=== PATIENT | female | born 1940 | race Caucasian/White ===

== ENCOUNTER 2020-10-23 17:56 | Emergency (ER) | payer MEDICARE, BC ==
[2020-10-23 18:25] LABS: PTT,PARTIAL THROMBOPLSTIN TIME 21.4 SEC (23.2-32.3)
[2020-10-23 18:29] LABS: CHLORIDE,CL 104 mEq/L (98-106); SODIUM,NA 141 mEq/L (136-145)
--- NOTE | 2020-10-23 18:34 | EDM.PDOC ---
ED HPI GENERAL MEDICAL PROBLEM - General Chief Complaint: Neuro Symptoms/Deficits Stated Complaint: slurred speech Time Seen by Provider: 10/23/20 18:23 Source of Information: Reports: Patient, Family - History of Present Illness INITIAL COMMENTS - FREE TEXT/NARRATIVE: Kaylyn is a pleasant 79 yo female who presents to the ED with c/o left arm numbness and flaccid hand as well as slurred speech. Reports last known well of 1750. Reports she was attempting to cut a pizza and her hand just went numb and she couldn't lift it. Reports she had to physically lift her left arm with her opposite arm. She reports numbness extended up to elbow area. Also reports her speech was somewhat slurred. She called her [id number] who then brought her here. Upon arrival, symptoms have improved. She has 5/5 strength to LUE. Speech very mildly slurred and very slight left sided facial droop with smiling. NIH 2. She reports prior to onset she was feeling well. Denies any recent illness. Denies any chest pain, dizziness, shortness of breath, N/V/D, urinary symptoms. She does admit to exertional SOB but this has been longstanding. She reports she is scheduled to have transcatheter aortic valve replacement on November 29. Onset: Today, Sudden Onset Date: 10/23/20 Onset Time: 17:50 Duration: Improving Location: Reports: Upper Extremity, Left - Related Data Allergies Allergy/AdvReac Type Severity Reaction Status Date / Time ciprofloxacin [From Cipro] Allergy Hives Verified 10/23/20 18:25 ciprofloxacin HCl Allergy Hives Verified 10/23/20 18:25 [From Cipro] Home Meds: Home Meds Aspirin [Halfprin] 81 mg PO BRK 01/29/15 [History] Calcium Carbonate [Calcium] 1,000 mg PO DAILY 01/29/15 [History] Cholecalciferol (Vitamin D3) [Vitamin D] 4,000 unit PO DAILY 01/29/15 [History] Ferrous Sulfate 324 mg PO WITHBREAKFAST 01/29/15 [History] Levothyroxine [Synthroid] 50 mcg PO ACBREAKFAST 01/29/15 [History] Lisinopril 20 mg PO DAILY 01/29/15 [History] Magnesium 500 mg PO DAILY 01/29/15 [History] glipiZIDE [Glipizide ER] 1 tab PO DAILY 01/29/15 [History] metFORMIN [Glucophage] 500 mg PO DAILY 01/29/15 [History] predniSONE [Prednisone] 5 mg PO Q48H PRN 01/29/15 [History] atorvaSTATin Calcium [Atorvastatin Calcium] 20 mg PO DAILY 03/14/16 [History] Folic Acid 1 mg PO DAILY 03/15/16 [History] Past Medical History Cardiovascular History: Reports: Heart Murmur, High Cholesterol, Hypertension Endocrine/Metabolic History: Reports: Diabetes, Type II Social & Family History - Family History Family Medical History: No Pertinent Family History - Recreational Drug Use Recreational Drug Use: No - Living Situation & Occupation Occupation: Retired ED ROS GENERAL - Review of Systems Review Of Systems: Comprehensive ROS is negative, except as noted in HPI. Constitutional: Denies: Fever, Chills, Malaise, Weakness, Fatigue, Decreased Appetite HEENT: Reports: No Symptoms. Denies: Vertigo, Vision Change Respiratory: Reports: No Symptoms. Denies: Shortness of Breath, Pleuritic Chest Pain, Cough, Sputum Cardiovascular: Reports: No Symptoms. Denies: Chest Pain, Dyspnea on Exertion, Edema, Syncope Endocrine: Reports: No Symptoms GI/Abdominal: Reports: No Symptoms : Reports: Incontinence (baseline ) Musculoskeletal: Reports: No Symptoms Skin: Reports: No Symptoms Neurological: Reports: Numbness (LUE, resolved at this time), Weakness (LUE, resolved at this time), Change in Speech (slurring, improved from intial onset). Denies: Confusion, Dizziness, Headache, Paresthesia, Syncope, Trouble Speaking, Gait Disturbance Psychiatric: Reports: No Symptoms Hematologic/Lymphatic: Reports: No Symptoms Immunologic: Reports: No Symptoms ED EXAM, NEURO - Physical Exam Exam: See Below Exam Limited By: No Limitations General Appearance: Alert, WD/WN, No Apparent Distress Eye Exam: Bilateral Eye: EOMI, Normal Fundi, Normal Inspection, PERRL Throat/Mouth: Normal Inspection, Normal Lips, Normal Teeth, Normal Gums, Normal Oropharynx, Normal Voice, No Airway Compromise Head Exam: Atraumatic, Normocephalic Neck: Normal Inspection, Supple, Non-Tender, Full Range of Motion Respiratory/Chest: No Respiratory Distress, Lungs Clear, Normal Breath Sounds, No Accessory Muscle Use, Chest Non-Tender Cardiovascular: Normal Peripheral Pulses, Regular Rate, Rhythm, No Edema, Systolic Murmur GI/Abdominal: Normal Bowel Sounds, Soft, Non-Tender, No Organomegaly, No Distention, No Abnormal Bruit, No Mass Neurological: Alert, Normal Mood/Affect, Normal Dorsiflexion, CN II-XII Intact, Normal Plantar Flexion, Normal Gait, Normal Reflexes, No Motor/Sensory Deficits, Oriented x 3. No: Abnormal Finger to Nose, Abnormal Sensation, Abnormal Light Touch Back Exam: Normal Inspection, Full Range of Motion, NT Extremities: Normal Inspection, Normal Range of Motion, Non-Tender, No Pedal Edema, Normal Capillary Refill Psychiatric: Normal Affect, Normal Mood Skin Exam: Warm, Dry, Intact, Normal Color, No Rash Course - Orders/Labs/Meds Labs: Laboratory Tests 10/23/20 10/23/20 10/23/20 Range/Units 17:59 18:10 18:10 WBC 6.6 (4.0-11.0) 10^3/uL RBC 3.80 L (4.00-5.50) x10^6/uL Hgb 11.4 L (12.0-16.0) g/dL Hct 35.7 L (37.0-47.0) % MCV 93.9 (83.0-97.0) fL MCH 30.0 (27.0-32.0) pg MCHC 31.9 L (32.0-36.0) g/dL RDW Coeff of Maninder 12.2 (11.0-15.0) % Plt Count 254 (150-400) 10^3/uL Immature Gran % (Auto) 0.2 (0.0-4.9) % Neut % (Auto) 59.3 (41-71) % Lymph % (Auto) 28.2 (24-44) % Bibb % (Auto) 10.0 (0-10) % Eos % (Auto) 2.0 (0-6) % Baso % (Auto) 0.3 (0-1) % Neut # (Auto) 3.94 (1.80-8.00) x10^3/uL Lymph # (Auto) 1.87 (0.60-5.00) 10^3/uL Bibb # (Auto) 0.66 (0.00-1.50) 10^3/uL Eos # (Auto) 0.13 (0.00-1.50) 10^3/uL Baso # (Auto) 0.02 (0.00-0.50) 10^3/uL Immature Gran # (Auto) 0.01 (0.00-0.49) 10^3/uL PT 10.3 (9.7-12.3) SEC INR 0.94 (0.92-1.18) APTT 21.4 L (23.2-32.3) SEC Sodium (136-145) mEq/L Potassium (3.5-5.0) mEq/L Chloride (98-106) mEq/L Carbon Dioxide (21-32) mmol/L BUN (7-18) mg/dL Creatinine (0.6-1.0) mg/dL Est Cr Clr Drug Dosing Estimated GFR (MDRD) (>=60) mL/min Glucose (75-99) mg/dL Calcium (8.4-10.1) mg/dL Creatine Kinase (21-215) U/L Troponin I (0.00-0.06) ng/mL Urine Color Light yellow (YELLOW) Urine Appearance Slightly cloudy (CLEAR) Urine pH 5.5 (4.5-8.0) Ur Specific George 1.020 (1.003-1.020) Urine Protein 30 H (NEGATIVE) mg/dL Urine Glucose (UA) Negative (NEGATIVE) mg/dL Urine Ketones Negative (NEGATIVE) mg/dL Urine Occult Blood Moderate H (NEGATIVE) Urine Nitrite Negative (NEGATIVE) Urine Bilirubin Negative (NEGATIVE) Urine Urobilinogen 0.2 (0.2-1.0) EU/dL Ur Leukocyte Esterase Large H (NEGATIVE) Urine RBC 5-10 H (0-5) /HPF Urine WBC 10-20 H (0-5) /HPF Urine WBC Clumps Moderate H (NOT SEEN) /HPF Ur Epithelial Cells Few H (NOT SEEN) /HPF Urine Bacteria Moderate H (NOT SEEN) /HPF 10/23/20 Range/Units 18:10 WBC (4.0-11.0) 10^3/uL RBC (4.00-5.50) x10^6/uL Hgb (12.0-16.0) g/dL Hct (37.0-47.0) % MCV (83.0-97.0) fL MCH (27.0-32.0) pg MCHC (32.0-36.0) g/dL RDW Coeff of Maninder (11.0-15.0) % Plt Count (150-400) 10^3/uL Immature Gran % (Auto) (0.0-4.9) % Neut % (Auto) (41-71) % Lymph % (Auto) (24-44) % Bibb % (Auto) (0-10) % Eos % (Auto) (0-6) % Baso % (Auto) (0-1) % Neut # (Auto) (1.80-8.00) x10^3/uL Lymph # (Auto) (0.60-5.00) 10^3/uL Bibb # (Auto) (0.00-1.50) 10^3/uL Eos # (Auto) (0.00-1.50) 10^3/uL Baso # (Auto) (0.00-0.50) 10^3/uL Immature Gran # (Auto) (0.00-0.49) 10^3/uL PT (9.7-12.3) SEC INR (0.92-1.18) APTT (23.2-32.3) SEC Sodium 141 (136-145) mEq/L Potassium 5.0 (3.5-5.0) mEq/L Chloride 104 (98-106) mEq/L Carbon Dioxide 24 (21-32) mmol/L BUN 28 H (7-18) mg/dL Creatinine 1.6 H (0.6-1.0) mg/dL Est Cr Clr Drug Dosing TNP Estimated GFR (MDRD) 31 L (>=60) mL/min Glucose 107 H D (75-99) mg/dL Calcium 9.1 (8.4-10.1) mg/dL Creatine Kinase 54 (21-215) U/L Troponin I < 0.017 (0.00-0.06) ng/mL Urine Color (YELLOW) Urine Appearance (CLEAR) Urine pH (4.5-8.0) Ur Specific George (1.003-1.020) Urine Protein (NEGATIVE) mg/dL Urine Glucose (UA) (NEGATIVE) mg/dL Urine Ketones (NEGATIVE) mg/dL Urine Occult Blood (NEGATIVE) Urine Nitrite (NEGATIVE) Urine Bilirubin (NEGATIVE) Urine Urobilinogen (0.2-1.0) EU/dL Ur Leukocyte Esterase (NEGATIVE) Urine RBC (0-5) /HPF Urine WBC (0-5) /HPF Urine WBC Clumps (NOT SEEN) /HPF Ur Epithelial Cells (NOT SEEN) /HPF Urine Bacteria (NOT SEEN) /HPF Meds: Medications Discontinued Medications Generic Name Dose Route Start Last Admin Trade Name Markq PRN Reason Stop Dose Admin Alteplase, Recombinant 7.3 mg 10/23/20 19:34 10/23/20 20:00 Alteplase 100 Mg Vial IV 10/23/20 19:35 7.3 mg BOLUS STA Administration Ceftriaxone Sodium 1 gm 10/23/20 20:45 10/23/20 20:47 Ceftriaxone 1 Gm Vial IVPUSH 10/23/20 20:46 1 gm ONETIME ONE Administration Alteplase, Recombinant 66.3 mg 0 mls @ 0 mls/hr 10/23/20 19:38 10/23/20 20:02 / Premix IV 10/23/20 19:39 66.3 mls/hr .INFUSION ONE Administration - Radiology Interpretation Free Text/Narrative:: Negative for acute findings. CT Results Date: 10/23/20 CT Results Time: 19:03 - Re-Assessments/Exams Free Text/Narrative Re-Assessment/Exam: 10/23/20 19:20 Discussed labs, EKG and head CT results with patient. Labs all stable. UA positive. Head CT negative for acute findings. Symptoms had resolved. While discussing these with patent, she got a blank stare on her face. Left sided facial droop, left UE weakness and numbness and slurred speech. NIH 6. 10/23/20 19:25 Consulted with [facility] neurologist Dr. Batista. Last known well from initial onset of symptoms 0. Symptoms had resolved prior to presentation. Symptoms of LUE weakness, left sided facial droop and slurred speech recurred at 1920. NIH 6 (LUE drift, slurred speech, facial droop, coordination, sensation). Repeat physical exam reveals 3/5 strength to LUE with drift, left sided facial droop. Contraindications to TPA reviewed. Patient has no contraindications. Discussed risks and benefits of TPA with patient and family. Risks include bleeding, which can include bleeding in the brain. Benefits include hopeful improvement in neuro deficits without any permanent deficits. Patient very emotional/tearful. Patient and family verbalized understanding of risks vs. benefits. 10/23/20 19:50 After much discussion, patient agreeable to receive TPA. TPA bolus administered. Patient then had resolution of neuro deficits. Infusion will be subsequently initiated. See nurses notes/charting. Risks and benefits of transfer discussed with patient and family. Risks of transfer include worsening of condition, brain bleed, , helicopter crash. Benefits of transfer include higher level of care with neuro consultation. Risks of nontransfer include worsening of condition, lasting neuro deficits, , and no neuro consultation. Benefits of nontransfer include convenience. 10/23/20 20:10 [facility] 1 hr 10 minutes out. 10/23/20 20:37 [facility] 32 minutes out. 10/23/20 21:00 TPA infusion completed. Just prior to completion, patient again had recurrence of same symptoms. Left sided facial droop, slurred speech, LUE weakness. NIH 6 (LUE drift, slurred speech, facial droop, coordination, sensation). No new focal deficits. 10/23/20 21:09 LUE weakness/drift resolved. Left sided facial droop remains but improved. Slurred speech improved. 10/23/20 21:15 [facility] at bedside. See nurses note for PMH, PSH, SH & FH. Departure - Departure Time of Disposition: 21:00 Disposition: DC/Tfer to Acute Hospital 02 Condition: Fair Clinical Impression: CVA (cerebral vascular accident) Qualifiers: CVA mechanism: unspecified Qualified Code(s): I63.9 - Cerebral infarction, unspecified Aortic stenosis Qualifiers: Cardiac valve disease etiology: etiology unspecified Qualified Code(s): I35.0 - Nonrheumatic aortic (valve) stenosis - Discharge Information *PRESCRIPTION DRUG MONITORING PROGRAM REVIEWED*: Not Applicable *COPY OF PRESCRIPTION DRUG MONITORING REPORT IN PATIENT [place]: Not Applicable Referrals: See Diaz MD [Primary Care Provider] - Forms: ED Department Discharge - Problem List & Annotations (1) CVA (cerebral vascular accident) SNOMED Code(s): 341656212 Code(s): I63.9 - CEREBRAL INFARCTION, UNSPECIFIED Status: Acute Qualifiers: CVA mechanism: unspecified Qualified Code(s): I63.9 - Cerebral infarction, unspecified (2) Aortic stenosis SNOMED Code(s): 61157013 Code(s): I35.0 - NONRHEUMATIC AORTIC (VALVE) STENOSIS Status: Acute Qualifiers: Cardiac valve disease etiology: etiology unspecified Qualified Code(s): I35.0 - Nonrheumatic aortic (valve) stenosis - Problem List Review Problem List Initiated/Reviewed/Updated: Yes - Assessment/Plan Assessment:: CVA Aortic Stenosis Plan: Pleasant 79 yo female presents to the ED with c/o slurred speech, LUE weakness and facial droop. NIH 3. Last known well 1750. Symptoms had resolved within 15 minutes of being in ED. Lab work completed without significant findings. UA positive. Was given 1 G rocephin. Creatine 1.6, stable at baseline. Head CT negative for acute hemorrhage or infarct. At 1920, patient had recurrence of stroke symptoms. Had significant left sided facial droop, LUE weakness and numbness and slurred speech. NIH then 6. Immediately consulted with [facility] neurologist Dr. Batista. Recommend TPA given last known well and no contraindications. Then consulted with Dr. Singh, ED provider who accepted the patient for transfer. After much discussion with patient and family, patient agreeable to receive TPA. TPA bolus administered without issue. Patient had resolution of stroke symptoms following this. Just as TPA infusion was completed, patient again had recurrence of symptoms all consistent with previous symptoms. NIH again 6. These symptoms resolved/improved within a matter of 5-6 minutes. VSS. BP slightly hypertensive. Patient will be transferred via [facility] to [facility]. Patient discharged from facility in stable condition with improvement in neuro deficits.
[2020-10-23] MEDS: ALTEPLASE IV ONE (20:02)
[2020-10-23] MEDS: cefTRIAXone 1 GM Vial IVPUSH ONE (20:47)
== END 2020-10-23 21:25 ==
LOC: CC.ED 17:56
DX: I63.9 Cerebral infarction, unspecified (principal); I35.0 Nonrheumatic aortic (valve) stenosis; E78.00 Pure hypercholesterolemia, unspecified; I10 Essential (primary) hypertension; E11.9 Type 2 diabetes mellitus without complications; Z88.1 Allergy status to other antibiotic agents; Z79.82 Long term (current) use of aspirin; Z79.84 Long term (current) use of oral hypoglycemic drugs; Z79.899 Other long term (current) drug therapy
CPT/HCPCS: 36415; 37195; 70450; 80048; 81001; 82550; 84484; 85025; 85610; 85730; 87086; 93005; 93010; 96374; 96375; 99284; 99285-25; J0696; J2997

== ENCOUNTER 2022-01-06 14:15 | Emergency (ER) | payer MEDICARE, BC ==
[2022-01-06 14:19] VITALS: BP 175/68; PULSE 104
[2022-01-06] MEDS: Take Home: Sulfamethoxazole/Trimethoprim 800-160 MG Tab, 2 Tab Pack PO ONE (16:09)
[2022-01-06] MEDS: Take Home: Acetaminophen/HYDROcodone 325-5 MG, 2 Tab Pack PO ONE (16:10)
[2022-01-06] MEDS: Acetaminophen/HYDROcodone 325-5 MG Tab PO ONE (16:15)
== END 2022-01-06 16:30 | disposition home or self-care (01) ==
LOC: CC.ED 14:15
DX: N20.0 Calculus of kidney (principal); N39.0 Urinary tract infection, site not specified; E78.00 Pure hypercholesterolemia, unspecified; I10 Essential (primary) hypertension; E11.9 Type 2 diabetes mellitus without complications; Z88.1 Allergy status to other antibiotic agents; Z88.8 Allergy status to other drugs, medicaments and biological substances; Z79.899 Other long term (current) drug therapy; Z79.82 Long term (current) use of aspirin; Z79.4 Long term (current) use of insulin
CPT/HCPCS: 36415; 74176; 80053; 81001; 85025; 86140; 87086; 99284; A9270-GY